=== PATIENT | male | born 1980 | race Hispanic/Latino ===

== ENCOUNTER 2020-02-03 10:38 | Emergency (ER) | payer SELFPAY ==
[2020-02-03 11:01] VITALS: BP 146/86; PULSE 61; RESP 18; TEMP 37.1; O2SAT 100
--- NOTE | 2020-02-03 11:16 | ED.NAVMDI ---
HPI - Nausea/Vomiting/Diarrhea General Chief complaint: Nausea/Vomiting/Diarrhea Stated complaint: upper stomach pain Time Seen by Provider: 02/03/20 11:16 Source: patient Mode of arrival: ambulatory Limitations: no limitations History of Present Illness HPI Narrative: Erick Fischer is a 39 yo male with no PMH wh comes to express care with complaints of belching and upper abdominal pain that is occurred prior to coming today but today has been there 3 separate times comes and goes. He states that he is eaten spicy food last night and her stomach seem to get upset this when he ate something else spicy and had pain after that. He states that he has had this in the past particularly when eating spicy foods. Patient has not had any primary care for a number of years because he has no insurance; no known whether he has any hypertension high cholesterol or diabetes. Patient will be given clinic referrals on discharge Related Data Home Medications Medication Instructions Recorded Confirmed cetirizine [Zyrtec] 10 mg PO DAILY 02/03/20 02/03/20 Allergies Allergy/AdvReac Type Severity Reaction Status Date / Time No Known Allergies Allergy Verified 02/03/20 11:06 Review of Systems Review of Systems: Narrative: CONSTITUTIONAL: Denies fever, chills, sweats. EYES: Denies visual changes, redness, discharge. ENT: Denies rhinorrhea, congestion, sore throat, otalgia. CARDIOVASCULAR: Denies chest pain, palpitations, edema. RESPIRATORY: Denies dyspnea, wheezing, cough GASTROINTESTINAL: Has epigastric pain, nausea, vomiting, diarrhea. GENITOURINARY: Denies dysuria, hematuria, abnormal discharge SKIN: Denies rash or itching. NEUROLOGIC: Denies numbness, or focal weakness. PSYCHIATRIC: Denies anxiety or depression. [facility] Past Medical History Medical History No active medical problems Family History Family History Other No active medical problems Social History Social History (Updated 02/03/20 @ 11:29 by Kristan Tarango CNP) Smoking packs per day: 0.5 Smoking cigarettes per day: 10.0 Smoking status: Current every day smoker Alcohol intake: current Comments At time of signature, I agree with nursing past medical, surgical, social and family history. There is no relevant family history pertinent to the presenting complaint. Blood pressure may be elevated due to pain and stress of coming to facility. Will refer to clinic through system Exam Narrative: Exam Narrative: GENERAL: This is a well-nourished, well-developed patient, in moderate distress. HEAD: normocephalic, atraumatic. EYES: Sclera clear/white. Vision is grossly intact. EARS: External ears normal, Hearing grossly intact. NOSE: External nose normal without nasal discharge, nares without redness, no rhinorrhea. THROAT: Mucous membranes moist, NECK: Neck supple, CARDIOVASCULAR: Regular rate and rhythm without murmurs, gallops, or rubs. RESPIRATORY: Clear to auscultation. Breath sounds equal bilaterally. No wheezes, rales, or rhonchi. GASTROINTESTINAL: Abdomen soft, tender in epigastric region, mild tenderness with deep palpation left lower quadrant SKIN: warm, intact with no suspicious lesions or rash, good texture and turgor. NEURO: awake, alert, and oriented to person, place and time. There were no obvious focal neurologic abnormalities. Steady gait EXTREMITIES: Normal range of motion. BACK: Nontender without deformity Course Course Emergency Course: Started on medication for GERD Protonix daily, given pepcid here and good rx coupon Patient must follow-up with clinic for blood work as well as continuation of medication Vital Signs Vital signs: Vital Signs Temperature 98.7 F 02/03/20 11:01 Pulse Rate 61 02/03/20 11:01 Respiratory Rate 18 02/03/20 11:01 Blood Pressure 146/86 H 02/03/20 11:01 Pulse Oximetry 100
[2020-02-03] MEDS: FAMOTIDINE 20 MG TABLET PO (11:42)
== END 2020-02-03 11:45 | disposition home or self-care (01) ==
PROVIDERS: Emergency Provider Nurse Practitioner
DX: K21.9 Gastro-esophageal reflux disease without esophagitis (principal); F17.210 Nicotine dependence, cigarettes, uncomplicated
CPT/HCPCS: 99203; A9270; G0463

== ENCOUNTER 2020-02-28 10:00 | Observation (INO) | payer SELFPAY ==
--- NOTE | ~2020-02-28 | XR_ITS ---
EXAMINATION: XR cholangiogram surg 1st inj DATE: 02/29/2020 12:39 INDICATION: Acute cholecystitis. TECHNIQUE: 112 fluoroscopic images of the right upper quadrant were obtained during intraoperative ch olangiography performed by the surgeon. I was not present in the operating room. Fluoroscopy exposure time was 20 seconds. COMPARISON: CT abdomen and pelvis 02/28/2020 FINDINGS: There is a catheter in the cystic duct. The common duct is mildly dilated to 8 mm. Contrast passes to the duodenum. No choledocholithiasis. IMPRESSION: 1. No choledocholithiasis. Reviewed, dictated and finalized at location A. IMPRESSION: 1. No choledocholithiasis.
--- NOTE | ~2020-02-28 | US_ITS ---
US right upper quadrant DATE: 02/28/2020 11:23 INDICATION: Abdominal pain TECHNIQUE: Real time imaging of the liver, pancreas and gallbladder COMPARISON: None FINDINGS: No hepatic or pancreatic space-occupying mass lesion is evident. Normal hepatopedal portal venous flow direction. There are multiple mobile shadowing filling defects of the gallbladder consistent with cholelithiasis . Gallbladder wall thickness is within normal range. Negative sonographic Hunter's sign. Common bile duct measures up to 1.6 cm, which is above normal range. IMPRESSION: Cholelithiasis Dilatation of the common bile duct; cannot exclude choledocholithiasis. Consider CT abdomen examinati on and/or MRCP Reviewed, dictated and finalized at Location A. Reviewed, dictated and finalized at location B. IMPRESSION: Cholelithiasis Dilatation of the common bile duct; cannot exclude choledocholithiasis. Conside r CT abdomen examination and/or MRCP
--- NOTE | ~2020-02-28 | CT_ITS ---
EXAMINATION: CT abdomen pelvis w con EXAM DATE: 02/28/2020 11:56 INDICATION: After quadrant pain, symptoms 3 weeks. TECHNIQUE: Spiral CT of the abdomen and pelvis was performed following intravenous injection of 100 m L Omnipaque 350. Axial, coronal and sagittal images were reviewed. The dose-length product (DLP) fo r this examination was 704.00 mGy-cm. The exposure was tailored according to patient size (auto mA e xposure control), and iterative reconstruction (ASIR) was used as additional dose reduction technique . Correlation is made to ultrasound same day. FINDINGS: The liver, spleen, adrenal glands and pancreas are unremarkable. Common bile duct is michelle l in caliber. There are multiple gallstones. There is mild pericholecystic fluid with indistinct gall bladder wall, appearance is suspicious for acute or chronic cholecystitis, clinical correlation. Por ynes and splenic veins are patent. Kidneys enhance symmetrically. There is no hydronephrosis. The prostate is unremarkable. The bladder is unremarkable. There is no retroperitoneal or pelvic lympha denopathy. The appendix is normal. The stomach and small bowel are unremarkable. There is expected amount of c olonic stool. No free intraperitoneal gas. The heart is normal in size. There are no pericardial or pleural effusions. The lung bases are unremarkable. The bones are unremarkable. IMPRESSION: Cholelithiasis, pericholecystic fluid and indistinct gallbladder wall, suspicious for acu te or chronic cholecystitis. Clinical correlation, HIDA scan recommended. Reviewed, dictated and finalized at location A. IMPRESSION: Cholelithiasis, pericholecystic fluid and indistinct gallbladder wa ll, suspicious for acute or chronic cholecystitis. Clinical correlation, HIDA s can recommended.
--- NOTE | ~2020-02-28 | XR_ITS ---
EXAMINATION: XR chest 2V EXAM DATE: 02/28/2020 10:32 INDICATION: Left-sided lower and upper chest pain. TECHNIQUE: Frontal and lateral projections of the chest obtained and reviewed. There is no prior shalini dy for comparison. FINDINGS: The lungs are clear. There are no pleural effusions. The cardiomediastinal silhouette is within normal limits. There is no pneumothorax suspected. The bones and soft tissues are unremarkab le. IMPRESSION: No acute cardiopulmonary findings. Reviewed, dictated and finalized at location A.
--- NOTE | 2020-02-28 10:07 | ECG_ITS ---
Measurements Intervals [place] Rate: 63 P: 8 ND: 136 QRS: 18 QRSD: 115 T: 7 QT: 394 QTc: 405 Interpretive Statements SINUS RHYTHM INTRAVENTRICULAR CONDUCTION DELAY ST ELEVATION IN ANTEROLAT/HIGH LAT LEADS- PROBABLY EARLY REPOLARIZATION BASELINE ARTIFACT- I, II, AVR, AVL, AVF BORDERLINE ECG Electronically Signed On 02-28-2020 10:27:05 CDT by Jay Adler D.O.
[2020-02-28 10:09] VITALS: BP 157/84; PULSE 69; RESP 20; O2SAT 98
--- NOTE | 2020-02-28 10:13 | ED.ABDPAIN ---
HPI - Abdominal Pain General Chief Complaint: Abdominal Pain Stated Complaint: lower to mid chest pain, from [facility] Time Seen by Provider: 02/28/20 10:01 Source: RN notes reviewed History of Present Illness HPI narrative: Patient presents emergency department from urgent care for gastric abdominal pain. Patient states symptoms been intermittent for the past 3 weeks. He states that pain is located in epigastric and left upper quadrant in the left lower chest and does not radiate. Described as burning in nature. States he was seen in urgent care several weeks ago and started on Protonix with minimal relief and went to urgent care today for follow-up and was instructed to come the ER for further evaluation. Denies any fevers or chills shortness of breath nausea vomiting diarrhea or any other symptoms. States he quit smoking 3 weeks ago Related Data Home Medications Medication Instructions Recorded Confirmed naproxen sodium [Aleve] mg PRN 02/28/20 Allergies Allergy/AdvReac Type Severity Reaction Status Date / Time No Known Allergies Allergy Verified 02/28/20 10:13 Review of Systems Review of Systems: Narrative: Gen.: Denies fevers or chills ENT: Denies congestion Respiratory: Denies shortness of breath or cough CV: Reports chest pain GI: See HPI Musculoskeletal: Denies back pain or muscle pain Neuro: Denies numbness, tingling, weakness or focal weakness Skin: Denies rash Except as documented, all other systems reviewed and negative [facility] Past Medical History Medical History No active medical problems Social History Social History Smoking packs per day: 0.5 Smoking cigarettes per day: 10.0 Smoking status: Current every day smoker Alcohol intake: current Gender identity (if verbalized by the patient): Male Exam Narrative: Exam Narrative: APPEARANCE: No acute distress, nontoxic, resting in bed HEENT: Normocephalic, atraumatic, OMM RESPIRATORY: No respiratory distress, clear to auscultation bilaterally with no rhonchi wheezing or rales CARDIOVASCULAR: RRR s murmur ABDOMINAL: Soft, nondistended, tender to palpation epigastric and left upper quadrant, no tenderness in either quadrant, right lower quadrant left lower quadrant, no rebound or guarding MUSCULOSKELETAl: Moves all extremities. No clubbing, cyanosis or edema. NEURO: Awake and alert. Following commands, speech normal, no focal deficits SKIN:: Warm, dry. Normal Color PSYCHIATRIC: Normal affect/mood Course Course Emergency Course: Discussed with Dr. Rivera presentation work-up. Agrees with admission to his service with patient started on Zosyn at this time Discussed with patient and family results of workup and diagnosis. Discussed need for admission. Patient and family understand and agree to current treatment plan Vital Signs Vital signs: Vital Signs Pulse Rate 69 02/28/20 10:09 Respiratory Rate 20 02/28/20 10:09 Blood Pressure 157/84 H 02/28/20 10:09 Pulse Oximetry 98 02/28/20 10:09 Pulse Rate 69 02/28/20 10:09 Respiratory Rate 02/28/20 10:09 Blood Pressure 157/84 H 02/28/20 10:09 Pulse Oximetry 98 02/28/20 10:09 MDM - Abdominal Pain Lab Data Result diagrams: 02/28/20 10:19 02/28/20 10:19 Labs: Lab Results 02/28/20 02/28/20 02/28/20 Range/Units 10:19 10:19 10:19 WBC 6.1 (4.5-10.0) K/mm3 RBC 5.00 (4.6-6.20) M/mm3 Hgb 15.3 (14.0-18.0) g/dL Hct 46.0 (42.0-52.0) % MCV 92.0 (80-100) fl MCH 30.6 (26-34) pg MCHC 33.3 (32-36) g/dl RDW 13.5 (11.5-14.5) % Plt Count 356 (150-375) k/mm3 MPV 9.2 (7.4-10.4) fl Immature Gran % (Auto) 0.7 H (0-0.5) % Neut % (Auto) 58.1 (45.5-73.1) % Lymph % (Auto) 30.2 (18.3-44.2) % [place] % (Auto) 6.5 (2.6-8.5) % Eos % (Auto) 4.2 (0-4.4) % Baso % (Auto)
[2020-02-28 10:29] LABS: Basophils Percent Auto 0.3 % (0.2-1.2); Eosinophils Absolute Auto 0.3 K/mm3 (0-0.3); Eosinophils Percent Auto 4.2 % (0-4.4); Hemoglobin 15.3 g/dL (14.0-18.0); Immature Granulocyte Absolute 0.04 K/mm3 (0.00-0.031); Immature Granulocyte Percent A 0.7 % (0-0.5); Lymphocytes Absolute Auto 1.85 K/mm3 (0.9-3.2); Lymphocytes Percent Auto 30.2 % (18.3-44.2); Mean Corpuscular HGB Conc 33.3 g/dl (32-36); Mean Corpuscular Hemoglobin 30.6 pg (26-34); Mean Platelet Volume 9.2 fl (7.4-10.4); Monocytes Absolute Auto 0.4 K/mm3 (0.1-0.6); Monocytes Percent Auto 6.5 % (2.6-8.5); Neutrophils Absolute Auto 3.6 K/mm3 (1.3-6.7); Neutrophils Percent Auto 58.1 % (45.5-73.1); Platelet Count Result 356 k/mm3 (150-375); Red Cell Distribution Width 13.5 % (11.5-14.5); White Blood Count 6.1 K/mm3 (4.5-10.0)
[2020-02-28 10:41] LABS: INR 0.8
[2020-02-28 10:42] LABS: Partial Thromboplastin Time 26.4 SECONDS (22.3-36.8)
[2020-02-28 10:44] LABS: Alanine Aminotransferase 157 U/L (4-50); Albumin Level 4.3 g/dL (3.5-5.1); Alkaline Phosphatase 161 U/L (38-126); Anion Gap 10 mmol/L (8-16); Aspartate Amino Transferase 49 U/L (17-59); Bilirubin,Total 2.9 mg/dL (0.2-1.3); Blood Urea Nitrogen 12 mg/dL (9-20); Calcium 9.5 mg/dL (8.4-10.2); Carbon Dioxide 28 mmol/L (22-30); Chloride 102 mmol/L (98-107); Estimated CRCL calculation 91 ml/min; Estimated Glomerular Filt Rate > 60; Glucose 185 mg/dL (75-110); Lipase 184 U/L (23-300); Potassium 3.9 mmol/L (3.4-5.0); Sodium 140 mmol/L (137-145)
[2020-02-28 10:55] LABS: Troponin I < 0.012 ng/mL (0.000-0.034)
[2020-02-28 11:37] LABS: Add Urine Microscopic? YES; Appearance Urine Clear (Clear); Bacteria Urine Trace /hpf; Bilirubin Urine Negative (Negative); Blood Urine Negative (Negative); Color Urine Amber (Yellow); Glucose Urine UA Negative (Negative); Ketones Urine Negative (Negative); Leukocyte Esterase Ur Negative LEU/UL (Negative); Mucus Urine Rare /lpf; Nitrate Urine Negative (Negative); Protein Urine Negative (Negative); RBC Urine 0-2 /hpf (0-2); Specific Grav Ur 1.017 (1.001-1.035); Squamous Epithelial Cell Urine Rare /hpf (Few); Urobilinogen Urine Negative mg/dL (<2.0); WBC Urine 0-3 /hpf
[2020-02-28 12:43] VITALS: BP 154/74; PULSE 61; RESP 16; O2SAT 98
[2020-02-28 14:07] VITALS: BP 145/93; PULSE 60; RESP 16; O2SAT 98
--- NOTE | 2020-02-28 14:30 | PC.NURSE ---
This patient, Erick Fischer, was admitted to 3 [facility] Surg Room 312-01. Patient/family oriented to hospital policies and general routines including ID bracelet, bed and alarms, visiting hours, pain management, procedures, bathroom and other care routines, personal items, smoking policy, room service/diet, and visiting hours. Valuables list has been completed. Information on how to activate the Rapid Response Team has been discussed. Patient/Family are encouraged to report perceived risks to care and to ask questions if they do not understand what they are told or what they should do.
[2020-02-28 14:31] VITALS: BMI 29.1
[2020-02-28 16:00] VITALS: BP 136/69; PULSE 57; RESP 16; TEMP 36.7; O2SAT 97
[2020-02-28] MEDS: SODIUM CHLORIDE 0.9% IV 1,000 ML 125 ML IV CONT (16:21)
[2020-02-28 16:58] LABS: Troponin I < 0.012 ng/mL (0.000-0.034)
[2020-02-28 19:54] LABS: Troponin I < 0.012 ng/mL (0.000-0.034)
--- NOTE | 2020-02-28 21:12 | PM.IMHP ---
H&P: HPI History of Present Illness Date/Time: 02/28/20 21:12 Chief complaint: Epigastric abdominal pain Narrative: Erick Fischer is a 39 year old male who presented to the ED today with epigastric abdominal pain off and on for the past few weeks. He has had several attacks of pain after eating. One time he knows it was after eating a flank steak with beans and rice. Other times he hasn't been able to pinpoint a specific food that caused it. He went to an urgent care the first time it happened and was given a prescription for Protonix and was told it was likely indigestion/acid reflux. The medicine helped somewhat at first but now it is not helping much. He has also been itching the last couple days and feeling feverish. He denies any hx of liver problems. He has never had problems like this in the past. Review of Systems Review of Systems: All systems reviewed & are unremarkable except as noted in HPI and below Constitutional: Constitutional: Reports as per HPI Eyes: Eyes: Denies change in vision ENT: Denies hearing loss, Denies neck pain and Denies sore throat Cardiovascular: Cardiovascular: Denies chest pain and Denies dyspnea Respiratory: Respiratory: Denies cough, Denies dyspnea and Denies wheezing Gastrointestinal: Gastrointestinal: Reports as per HPI Genitourinary: Genitourinary: Denies hematuria and Denies dysuria Musculoskeletal: Musculoskeletal: Denies arthralgias, Denies joint swelling and Denies neck pain Allergic/Immunologic: Allergic/Immunologic: Denies wheezing PMFSH Past Medical History Medical History No active medical problems Family History Family History Mother No active medical problems diabetes Social History Social History Smoking packs per day: 0.5 Smoking cigarettes per day: 10.0 Smoking status: Former smoker Tobacco type: cigarettes Smoking end date: 02/07/20 Alcohol intake: current Drinks per week: 2 Substance use: never Substance use type: does not use Gender identity (if verbalized by the patient): Male Sexual Orientation (if Verbalized by the Patient): Straight or Heterosexual Spiritual care concerns: No Meds Home Medications and Allergies Home Medications Medication Instructions Recorded Confirmed Type pantoprazole [Protonix] 40 mg PO QAM 28 Days #28 tablet 02/03/20 02/28/20 Rx naproxen sodium [Aleve] 220 mg PO PRN PRN 02/28/20 02/28/20 History Allergies Allergy/AdvReac Type Severity Reaction Status Date / Time No Known Allergies Allergy Verified 02/28/20 10:13 Vital Signs Vital Signs - 24 hr 02/28/20 10:09 02/28/20 12:43 02/28/20 14:07 Temperature Pulse Rate 69 61 60 Respiratory Rate 20 16 16 Blood Pressure 157/84 H 154/74 H 145/93 H Pulse Oximetry 98 98 98 02/28/20 16:00 Temperature 36.7 C Pulse Rate 57 L Respiratory Rate 16 Blood Pressure 136/69 Pulse Oximetry 97 Exam Const: General: alert; No acute distress Orientation/consciousness: patient oriented x3 Limitations: no limitations HENMT: Head: normocephalic and atraumatic Ears: hearing grossly normal bilaterally General nose exam: Normal external nose present and Normal nares present Mouth: Yes Normal oral and palatal mucosa present and Yes moist mucous membranes Eyes: General: appearance normal, both eyes and all related structures Conjunctivae: conjunctivae normal Sclera: sclerae normal Pupils: Equal, round and reactive pupils present EOM: EOMs intact bilaterally Neck: Neck: normal visual inspection, full ROM, no lymphadenopathy, supple and no JVD Lymphatic: no lymphadenopathy noted Chest: Chest palpation & inspection: normal inspection of the chest Resp: Effort & Inspection: normal respiratory effort and able to speak in complete sentences Auscultation: clear
[2020-02-28 22:00] VITALS: BP 148/65; PULSE 70; RESP 18; TEMP 36.8; O2SAT 98
[2020-02-29] VITALS (13 sets, daily range): BP systolic 129–150; BP diastolic 68–89; PULSE 62–93; RESP 14–20; TEMP 36.1–37; O2SAT 95–100
[2020-02-29] MEDS: SODIUM CHLORIDE 0.9% IV 1,000 ML 125 ML IV CONT (01:43)
[2020-02-29] MEDS: CHLORHEXIDINE GLUCONATE 4% SOL 120 ML BTL 1 APPLIC TOPICAL (04:49)
[2020-02-29 06:30] LABS: Basophils Percent Auto 0.3 % (0.2-1.2); Eosinophils Absolute Auto 0.2 K/mm3 (0-0.3); Eosinophils Percent Auto 3.5 % (0-4.4); Hematocrit 40.6 % (42.0-52.0); Hemoglobin 13.6 g/dL (14.0-18.0); Immature Granulocyte Absolute 0.03 K/mm3 (0.00-0.031); Immature Granulocyte Percent A 0.5 % (0-0.5); Lymphocytes Absolute Auto 1.66 K/mm3 (0.9-3.2); Lymphocytes Percent Auto 28.8 % (18.3-44.2); Mean Corpuscular HGB Conc 33.5 g/dl (32-36); Mean Corpuscular Hemoglobin 30.2 pg (26-34); Mean Platelet Volume 9.2 fl (7.4-10.4); Monocytes Absolute Auto 0.6 K/mm3 (0.1-0.6); Monocytes Percent Auto 10.2 % (2.6-8.5); Neutrophils Absolute Auto 3.3 K/mm3 (1.3-6.7); Neutrophils Percent Auto 56.7 % (45.5-73.1); Platelet Count Result 327 k/mm3 (150-375); Red Blood Count 4.51 M/mm3 (4.6-6.20); Red Cell Distribution Width 13.2 % (11.5-14.5); White Blood Count 5.8 K/mm3 (4.5-10.0)
[2020-02-29 06:43] LABS: Alanine Aminotransferase 126 U/L (4-50); Alkaline Phosphatase 144 U/L (38-126); Anion Gap 10 mmol/L (8-16); Aspartate Amino Transferase 45 U/L (17-59); Bilirubin,Total 3.5 mg/dL (0.2-1.3); Blood Urea Nitrogen 12 mg/dL (9-20); Calcium 8.9 mg/dL (8.4-10.2); Carbon Dioxide 27 mmol/L (22-30); Chloride 103 mmol/L (98-107); Estimated CRCL calculation 91 ml/min; Estimated Glomerular Filt Rate > 60; Glucose 145 mg/dL (75-110); Lipase 276 U/L (23-300); Potassium 4.1 mmol/L (3.4-5.0); Sodium 140 mmol/L (137-145)
[2020-02-29] MEDS: LACTATED RINGERS 1,000 ML 30 ML IV CONT ×2 (11:00→13:01)
--- NOTE | 2020-02-29 11:07 | WPDANESEPPF ---
Anes - Initial Pre Proc Eval Procedure: Operation Date: 02/29/20 11:30 Proposed Procedures p Laparoscopic Cholecystectomy - Huey Rivera DO Date/Time: 02/29/20 11:07 Surgeon: Huey Rivera DO Pre Op Diagnosis: Epigastric abdominal pain Patient Data Age: 39 Gender: M Height: 5 ft 10 in Weight: 92.2 kg Last Vital Signs Temp 97.8 F 02/29/20 04:00 Pulse 62 02/29/20 04:00 Resp 20 02/29/20 04:00 BP 132/86 02/29/20 04:00 Pulse Ox 95 02/29/20 04:00 Allergies Allergy/AdvReac Type Severity Reaction Status Date / Time No Known Allergies Allergy Verified 02/29/20 10:38 Home Medications Medication Instructions Recorded Confirmed Type pantoprazole [Protonix] 40 mg PO QAM 28 Days #28 tablet 02/03/20 02/28/20 Rx naproxen sodium [Aleve] 220 mg PO PRN PRN 02/28/20 02/28/20 History Laboratory Tests 02/28/20 02/28/20 02/28/20 11:21 16:22 19:15 WBC RBC Hgb Hct MCV MCH MCHC RDW Plt Count MPV Immature Gran % (Auto) Neut % (Auto) Lymph % (Auto) [place] % (Auto) Eos % (Auto) Baso % (Auto) Lymph # (Auto) [place] # (Auto) Eos # (Auto) Baso # (Auto) Abs Immat Gran (auto) Absolute Neuts (auto) Absolute Nucleated RBC Nucleated RBC % Sodium Potassium Chloride Carbon Dioxide Anion Gap BUN Creatinine Estim Creat Clear Calc Estimated GFR Glucose Calcium Total Bilirubin AST ALT Alkaline Phosphatase Troponin I < 0.012 ng/mL ng/mL < 0.012 ng/mL ng/mL (0.000-0.034) (0.000-0.034) Total Protein Albumin Lipase Urine Color [place] (Yellow) Urine Appearance Clear (Clear) Urine pH 5.0 (5.0-9.0) Ur Specific [place] 1.017 (1.001-1.035) Urine Protein Negative mg/dL mg/dL (Negative) Urine Glucose (UA) Negative mg/dL mg/dL (Negative) Urine Ketones Negative mg/dL mg/dL (Negative) Ur Blood (Man) Negative (Negative) Urine Nitrate Negative (Negative) Urine Bilirubin Negative (Negative) Urine Urobilinogen Negative mg/dL mg/dL (<2.0) Leukocyte Esterase Rfl Negative BERTRAM/UL BERTRAM/UL (Negative) Urine RBC 0-2 /hpf /hpf (0-2) Urine WBC 0-3 /hpf /hpf Ur Squamous Epith Cells Rare /hpf /hpf (Few) Urine Bacteria Trace /hpf /hpf Hyaline Casts 1-2 /lpf /lpf (None) Urine Mucus Rare /lpf /lpf Blood Type Antibody Screen 02/29/20 02/29/20 02/29/20 06:09 06:09 06:09 WBC 5.8 K/mm3 K/mm3 (4.5-10.0) RBC 4.51 M/mm3 L M/mm3 (4.6-6.20) Hgb 13.6 g/dL L g/dL (14.0-18.0) Hct 40.6 % L % (42.0-52.0) MCV 90.0 fl fl (80-100) MCH 30.2 pg pg (26-34) MCHC 33.5 g/dl g/dl (32-36) RDW 13.2 % % (11.5-14.5) Plt Count 327 k/mm3 k/mm3 (150-375) MPV 9.2 fl fl (7.4-10.4) Immature Gran % (Auto) 0.5 % % (0-0.5) Neut % (Auto) 56.7 % % (45.5-73.1) Lymph % (Auto) 28.8 % % (18.3-44.2) [place] % (Auto) 10.2 % H % (2.6-8.5) Eos % (Auto) 3.5 % % (0-4.4) Baso % (Auto) 0.3 % % (0.2-1.2) Lymph # (Auto) 1.66 K/mm3 K/mm3 (0.9-3.2) [place] # (Auto) 0.6 K/mm3 K/mm3 (0.1-0.6) Eos # (Auto) 0.2 K/mm3 K/mm3 (0-0.3) Baso # (Auto) 0.0 K/mm3 K/mm3 (0.0-0.1) Abs Immat Gran (auto) 0.03 K/m
--- NOTE | 2020-02-29 11:37 | WPDHPUPDATE1 ---
History and Physical Update Update Date/Time: 02/29/20 11:37 History and Physical has been reviewed, including an updated exam of the patient. There are NO changes in the patient's condition. Risks, benefits, and alternatives have been discussed and questions answered. Patient agrees to proceed with procedure.
[2020-02-29] MEDS: BUPIVACAINE/EPINEPHRINE 0.5% 10 ML VIAL 30 ML INFILTRATE (12:19)
--- NOTE | 2020-02-29 12:56 | PM.PROC ---
Procedure Note - Detailed Date of procedure: 02/29/20 Pre-op diagnosis: Acute calculous cholecysitis, elevated LFT's Post-op diagnosis: same Procedure performed: Laparoscopic Cholecystectomy with intraoperative cholangiogram Description of procedure: Procedure as well as risks, benefits, and alternatives were discussed with patient. Written consent was obtained and placed in chart prior to procedure. The patient was brought back to surgical suite. Patient was placed in supine position on operating table. Time-out was done to confirm patient and procedure. Patient was then intubated by the anesthesia department. Abdomen was prepped and draped in sterile fashion using chlorhexidine prep. 0.5% bupivacaine with epinephrine was infiltrated at each site of incision. A 5 millimeter incision was made near the umbilicus, and a 5 millimeter Optiview trocar was advanced through the abdominal layers under direct visualization. Once inside the abdominal cavity, carbon dioxide was insufflated to create a pneumoperitoneum. The camera was inserted and the abdomen was inspected. No immediate abnormalities were identified. The patient was placed in reverse Trendelenburg position and rotated slightly to the left. An 11 millimeter incision was made in the subxiphoid region, and an 11 millimeter trocar was inserted under direct visualization. Two 5 millimeter incisions were made in the right upper quadrant, and two 5 millimeter trocars were inserted under direct visualization. The gallbladder was identified and grasped at the fundus and retracted superiorly. It was then grasped at the infundibulum retracted laterally. Careful dissection around the neck of the gallbladder was performed using blunt dissection with a [place] grasper and hook electrocautery. The cystic duct was identified, and a window was created behind it. The cystic artery was also identified and a window was created behind it. The critical view of safety was identified, visualizing the cystic duct running directly into the neck of the gallbladder, and the cystic artery running directly into the wall of the gallbladder. The Daniel clamp was placed across the neck of the gallbladder and Daniel cholangiocatheter was advanced into the distal neck of the gallbladder. The catheter flushed with saline with ease. The intraoperative cholangiogram was obtained using Omnipaque contrast with the patient supine on the operating table. No evidence of filling defects were noted. The images were sent to the radiologist for interpretation. The patient was placed back in reverse Trendelenburg position. The Daniel clamp and catheter were removed. A 5 millimeter clip inspector assemblies and installations was then used to place 2 clips proximally and 1 clip distally on both the cystic duct and cystic artery. They were then both transected using endoscopic scissors. Once safely away from the bety hepatitis, the gallbladder was dissected free from the liver bed using hook electrocautery. Hemostasis was achieved along the way. The gallbladder was removed completely and then removed through the subxiphoid port. The liver bed was then inspected. Hemostasis appeared adequate, and our clips appeared secure. The area was gently irrigated with sterile saline. No other abnormalities were seen. The patient was flattened out in bed, and 1 final inspection was made around the abdominal cavity. The subxiphoid port was removed, and a Saeid Tay cone was used to approximate the fascia with an 0-Vicryl simple interrupted suture. The remaining ports were then removed under direct visualization, the camera was removed, and the pneumoperitoneum was released. The skin of the incisions was approximated using 4-0 Monocryl subcuticular sutures. Exofin glue was applied on top. The patient was then awakened from anesthesia, extubated, and transferred to recovery. Anesthesia: GETA and local (0.5% bupivicaine with epi) Surgeon: Huey Rivera DO Estimated blood loss (
[2020-02-29] MEDS: fentaNYL CITRATE INJ (*CRX) 100 MCG/2 ML VIAL 25 MCG IV PUSH ×8 (13:22→14:02)
[2020-02-29] MEDS: MORPHINE SULFATE (*CRX) 2 MG/ML INJ IV PUSH (15:11)
[2020-02-29] MEDS: ONDANSETRON INJ 4 MG/2 ML VIAL IV PUSH (15:11)
[2020-02-29] MEDS: HYDROcodone/acetaminophen (*CRX) 5-325 MG TABLET 1 TAB PO (17:59)
[2020-02-29] MEDS: PANTOPRAZOLE 40 MG TABLET PO (18:00)
--- NOTE | 2020-03-14 15:18 | PM.DS ---
DS: Admitting Diagnosis Admitting Diagnosis Admitting Diagnosis: Acute calculous cholecysitis, elevated LFT's DS: Discharge Diagnosis Discharge Diagnosis (1) Acute cholecystitis: Code(s): K81.0 - Acute cholecystitis Status: Acute (2) BMI 30.0-30.9,adult: Code(s): Z68.30 - Body mass index [BMI]30.0-30.9, adult Status: Acute DS: Summary Hospital Course Reason for hospitalization: Acute calculous cholecystitis. Hospital Course: This is a 39-year-old man who presented to the emergency department with upper abdominal pain for the past several weeks. He was having pain off and on, but now his pain has become more persistent and more severe. He was evaluated in the emergency department and imaging suggested acute calculous cholecystitis. He was admitted for further treatment. He was started on broad-spectrum IV antibiotics. He was noted to have elevated liver enzymes on admission. Decision was made to proceed with laparoscopic cholecystectomy with intraoperative cholangiogram. Patient underwent surgery on 02/29/2020. Postoperatively his diet and activity were advanced as tolerated. He was tolerating a low-fat diet and his pain was well controlled. He was discharged on 02/29/2020. Status at Discharge Functional status at discharge: independent ambulation Overall status at discharge: patient is progressing back to baseline Time Spent with Patient Time attestation: Total time spent providing and/or coordinating discharge services: Time spent: Less than 30 minutes Exam GI: Inspection: non-distended GI Palp: Yes Soft to palpation DS: Data Data Completed and Pending Completed studies during hospitalization: Pending at discharge 02/29/20 12:13 Surgical [PTH] Routine Discharge Plan Discharge Attending physician on discharge: Huey Knapp Consulting providers: Gurpreet Blanchard ; Kevin Mckeon V. ; Brett Kyle ; Jay Adler ; Laurent Mcgee Discharging Clinician: Huey Knapp Anticipated Discharge Date/Time: 02/29/20 16:00 Patient Disposition: Home, Self-Care Activity: other - see discharge instructions Diet: low fat Wound Care Instructions: follow printed instructions Discharge Instructions: DISCHARGE INSTRUCTION SHEET FOR HERNIA, GALLBLADDER AND APPENDIX SURGERIES DR. KNAPP PATIENT TO TAKE HOME 1. May shower in 24 hours, no soaking in bath x 2weeks. 2. Call office for: Wound increasingly painful or bleeding Vomiting Fever of greater than 101 degrees 3. If no bowel movement for three days, take 1 oz. (30 ml) Milk of Magnesia or MiraLax 17g 1 to 2 times daily. 4. No heavy lifting > 10-15 pounds x weeks for hernia repairs and 2 weeks for laparoscopic cholecystectomy or appendectomy. 5. No driving for 3 days or while taking narcotic pain medications. 6. Ice to surgical site for 48 hours (30 min on, then 30 min off). 7. Up walking 10-30 minutes three times per day. 8. Resume previous home medications. 9. Follow-up 10-14 days in office for wound check or as previously scheduled. ([phone]) 10. Oral pain medications prescription to be sent to pharmacy. Take Tylenol 500mg every 6 hours and Ibuprofen 600mg every 6 hours for the first 2 days, then as needed. 11. NUTRITION: Start out by drinking fluids and increase your diet as tolerated. If you experience nausea, try dry toast, crackers, and 7-UP. If nausea or vomiting persists, contact your surgeon?s office. 12. Gallbladders-Low Fat Diet for 2 weeks (send care note of low fat diet) 13. Inguinal Hernias-wear scrotal support for 48 hours 14. Abdominal Hernias-if sent home with abdominal binder, wear for the first 2 weeks (may remove to shower or at night to sleep).
== END 2020-02-29 18:52 | disposition home or self-care (01) ==
LOC: ANHED 12:33 → ANH3MEDSUR 13:02
PROVIDERS: Admitting Provider Surgery; Emergency Provider Emergency Medicine; Visit Provider Surgery
PROC: 0FT44ZZ Resection of Gallbladder, Percutaneous Endoscopic Approach (ICD-10-PCS; CPT 47562; principal; 2020-02-29 11:30)
DX: K80.00 Calculus of gallbladder with acute cholecystitis without obstruction (principal); R74.8 Abnormal levels of other serum enzymes; Z87.891 Personal history of nicotine dependence; R07.9 Chest pain, unspecified
CPT/HCPCS: 47563; 36415; 71046; 74177; 74300; 76705; 80053; 81001; 83690; 84484; 85025; 85610; 85730; 86850; 86900; 86901; 88304; 93005; 96361; 96365; 96375; 96376; 99285; A9270; G0378; G0379; J0330; J1100; J2250; J2270; J2405; J2543; J2704; J2710; J3010; J7030; J7120; Q9966; Q9967

== ENCOUNTER 2024-05-03 09:21 | Emergency (ER) | payer SELFPAY ==
--- NOTE | ~2024-05-03 | CT_ITS ---
CT of the Abdomen and Pelvis: Indication: Abdominal pain Technique: 2.5 mm axial scans were obtained through the abdomen and pelvis following intravenous adm inistration of 100 cc of Omnipaque 350. Dose reduction technique was used on this scan by utilizing a utomated exposure control and iterative reconstruction technique. The dose-length product (DLP) was 4 85.62 mGy-cm. Findings: Scans through the lung bases are unremarkable. The liver, spleen, pancreas, adrenals and kidneys are within normal limits. Cholecystectomy clips are present. No evidence of aortic aneurysm. No lymphadenopathy. No bowel obstruction or bowel wall thickening. There is no evidence to suggest acute appendicitis. Images through the pelvis were performed. Urinary bladder unremarkable. No pelvic mass seen. No ascit es. Impression: No significant abnormalities seen. Reviewed, dictated and finalized at [facility]. [employer]PRESENT[employer]IVE Impression: No significant abnormalities seen.
[2024-05-03 09:24] VITALS: BP 139/74; PULSE 69; RESP 18; TEMP 36.7; O2SAT 100
[2024-05-03 12:11] LABS: Basophils Percent Auto 0.3 % (0.2-1.2); Eosinophils Absolute Auto 0.3 K/mm3 (0-0.3); Eosinophils Percent Auto 3.6 % (0-4.4); Hemoglobin 14.6 g/dL (14.0-18.0); Immature Granulocyte Absolute 0.02 K/mm3 (0.00-0.031); Immature Granulocyte Percent A 0.3 % (0-0.5); Lymphocytes Absolute Auto 1.66 K/mm3 (0.9-3.2); Mean Corpuscular HGB Conc 33.2 g/dl (32-36); Mean Corpuscular Hemoglobin 30.7 pg (26-34); Mean Corpuscular Volume 92.4 fl (80-100); Mean Platelet Volume 9.2 fl (7.4-10.4); Monocytes Absolute Auto 0.5 K/mm3 (0.1-0.6); Monocytes Percent Auto 6.8 % (2.6-8.5); Neutrophils Absolute Auto 5.1 K/mm3 (1.3-6.7); Platelet Count Result 250 k/mm3 (150-375); Red Blood Count 4.76 M/mm3 (4.6-6.20); White Blood Count 7.5 K/mm3 (4.5-10.0)
[2024-05-03 12:15] LABS: Add Urine Microscopic? YES; Appearance Urine Clear (Clear); Bacteria Urine None Seen /hpf; Bilirubin Urine Negative (Negative); Blood Urine Negative (Negative); Color Urine Yellow (Yellow); Glucose Urine UA Negative (Negative); Ketones Urine Negative (Negative); Leukocyte Esterase Ur Trace LEU/UL (Negative); Nitrate Urine Negative (Negative); Non Pathogenic Casts 0-2; Protein Urine Negative (Negative); RBC Urine 0-2 /hpf (0-2); Specific Grav Ur 1.021 (1.001-1.035); Squamous Epithelial Cell Urine Occasional /hpf (Few); Urobilinogen Urine 0.2 mg/dL (<2.0); WBC Urine 0-5 /hpf (0-3)
[2024-05-03 12:20] LABS: Prothrombin Time 13.3 Seconds (11.1-14.7)
[2024-05-03 12:21] LABS: Partial Thromboplastin Time 25.9 Seconds (22.3-36.8)
[2024-05-03 12:31] LABS: Alanine Aminotransferase 50 U/L (6-50); Albumin Level 4.4 g/dL (3.5-5.1); Alkaline Phosphatase 82 U/L (38-126); Anion Gap 4 mmol/L (4-12); Aspartate Amino Transferase 29 U/L (17-59); Bilirubin,Total 0.7 mg/dL (0.2-1.3); Blood Urea Nitrogen 16 mg/dL (9-20); Carbon Dioxide 29 mmol/L (22-30); Chloride 105 mmol/L (98-107); Estimated Glomerular Filt Rate > 60; Glucose 117 mg/dL (65-110); Potassium 4.4 mmol/L (3.4-5.0); Sodium 138 mmol/L (137-145)
[2024-05-03] MEDS: PANTOPRAZOLE SODIUM IV 40 MG VIAL IV PUSH (12:33)
[2024-05-03] MEDS: FAMOTIDINE 20 MG/2 ML VIAL IV PUSH (12:34)
--- NOTE | 2024-05-03 12:36 | ED_ITS ---
HPI - General Adult General Chief complaint: Abdominal Pain Stated complaint: left flank pain Time Seen by Provider: 05/03/24 11:37 History of Present Illness HPI narrative: 44-year-old male presenting to the emergency department for evaluation for left upper quadrant pain. Patient reports began developing pain a few days ago. Patient states pain is worsened with eating. Patient states he had a large male last night and this definitely cause a sensation bloating. Patient denies any prior history of gastritis. Patient denies any history of kidney stones. Related Data Home Medications Medication Instructions Recorded Confirmed naproxen sodium 220 mg tablet 220 mg PO PRN PRN Mild Pain (Scale 02/28/2002/27 (Aleve) Score 1-4) Allergies Allergy/AdvReac Type Severity Reaction Status Date / Time No Known Allergies Allergy Verified 03/14/20 10:55 Review of Systems Review of Systems: All systems reviewed & are unremarkable except as noted in HPI and below PMFSH Past Medical History Medical History Elevated liver enzymes GERD (gastroesophageal reflux disease) No active medical problems Surgical History Surgical History Hx laparoscopic cholecystectomy 02/29/2020 Family History Family History Mother No active medical problems diabetes Social History Social History Smoking packs per day: 0.5 Smoking cigarettes per day: 10.0 Smoking status: Former smoker Tobacco type: cigarettes Smoking end date: 02/07/20 Alcohol intake: current Drinks per week: 2 Substance use: never Substance use type: does not use Gender identity (if verbalized by the patient): Male Sexual Orientation (if Verbalized by the Patient): Straight or Heterosexual Spiritual care concerns: No Exam Narrative: APPEARANCE: Well appearing, no pain, no distress, well-nourished. HEAD: normocephalic, atraumatic. EYES: PERRLA/EOMI, conjunctivae clear. NOSE: Normal no drainage EARS:TMS clear with good light reflex. THROAT: Pharynx clear, no exudate. NECK: Supple. No adenopathy, no masses. RESPIRATORY: Airway patent, respirations nonlabored. Clear to auscultation bilaterally, no rales, rhonchi, wheezing. CARDIOVASCULAR: Regular rate and rhythm without murmurs rubs or gallops. ABDOMINAL: Soft, nontender, nondistended, normal bowel sounds MUSCULOSKELETAL: Moves all extremities. Strength/ROM intact, No edema, No calf tenderness. NEURO: Alert. Cranial nerves II through XII intact. Grossly intact SKIN: Warm, dry. Normal Color Course Course Emergency Course: Patient felt improved and was updated results of his workup. Vital Signs Vital signs: Vital Signs Temperature 98.0 F 05/03/24 09:24 Pulse Rate 69 05/03/24 09:24 Respiratory Rate 18 05/03/24 09:24 Blood Pressure 139/74 05/03/24 09:24 Pulse Oximetry 100 05/03/24 09:24 Oxygen Delivery Room Air 05/03/24 09:24 Temperature 97.6 F 05/03/24 14:59 Pulse Rate 62 05/03/24 14:59 Respiratory Rate 18 05/03/24 14:59 Blood Pressure 125/75 05/03/24 14:59 Pulse Oximetry 100 05/03/24 14:59 Oxygen Delivery Room Air 05/03/24 09:24 Medical Decision Making [facility] Narrative Medical decision making narrative: 44-year-old male presented emergency department for evaluation for left upper quadrant abdominal pain. Patient is afebrile with no leukocytosis and a hemoglobin of 14.6. Patient has no acute abnormalities on his CMP and patient is UA shows no evidence of infection. CT scan showed no acute abnormality. Patient was treated with Protonix and famotidine along with IV pain medication. On re-evaluation patient states he feels significantly improved. Suspect gastritis. During patient Education on how to prevent gastritis patient did admit that he had been taking more ibuprofen recently due to the stomach pain. Patient has previously been on Prilosec but has not been taking it recently. Patient was encouraged to restart his Prilosec and was encouraged to have close follow-up with GI. All questions and concerns were addressed. Differential Diagnosis Differential Diagnosis: Colitis, diverticulitis, gastritis, gastric ulcer, pancreatitis Vital Signs Vital Signs: Vital Signs Temperature 98.0 F 05/03/24 09:24 Pulse Rate 69 05/03/24 09:24 Respiratory Rate 18 05/03/24 09:24 Blood Pressure 139/74 05/03/24 09:24 Pulse Oximetry 100 05/03/24 09:24 Oxygen Delivery Room Air 05/03/24 09:24 Temperature 97.6 F 05/03/24 14:59 Pulse Rate 62 05/03/24 14:59 Respiratory Rate 18 05/03/24 14:59 Blood Pressure 125/75 05/03/24 14:59 Pulse Oximetry 100 05/03/24 14:59 Oxygen Delivery Room Air 05/03/24 09:24 Lab Data Lab results reviewed: Yes I reviewed the patient's lab results. 05/03/24 12:05 05/03/24 12:05 Labs: Lab Results 05/03/24 Range/Units 12:05 WBC 7.5 (4.5-10.0) K/mm3 RBC 4.76 (4.6-6.20) M/mm3 Hgb 14.6 (14.0-18.0) g/dL Hct 44.0 (42.0-52.0) % MCV 92.4 (80-100) fl MCH 30.7 (26-34) pg MCHC 33.2 (32-36) g/dl RDW 13.0 (11.5-14.5) % Plt Count 250 (150-375) k/mm3 MPV 9.2 (7.4-10.4) fl Immature Gran % (Auto) 0.3 (0-0.5) % Neut % (Auto) 67.0 (45.5-73.1) % Lymph % (Auto) 22.0 (18.3-44.2) % [place] % (Auto) 6.8 (2.6-8.5) % Eos % (Auto) 3.6 (0-4.4) % Baso % (Auto) 0.3 (0.2-1.2) % Lymph # (Auto) 1.66 (0.9-3.2) K/mm3 [place] # (Auto) 0.5 (0.1-0.6) K/mm3 Eos # (Auto) 0.3 (0-0.3) K/mm3 Baso # (Auto) 0.0 (0.0-0.1) K/mm3 Abs Immat Gran (auto) 0.02 (0.00-0.031) K/mm3 Absolute Neuts (auto) 5.1 (1.3-6.7) K/mm3 Absolute Nucleated RBC 0.000 (0.0-0.012) K/mm3 Nucleated RBC % 0.0 (0.0-0.2) % PT 13.3 (11.1-14.7) Seconds INR 1.0 APTT 25.9 (22.3-36.8) Seconds Sodium 138 (137-145) mmol/L Potassium 4.4 (3.4-5.0) mmol/L Chloride 105 (98-107) mmol/L Carbon Dioxide 29 (22-30) mmol/L Anion Gap 4 (4-12) mmol/L BUN 16 (9-20) mg/dL Creatinine 1.00 (0.7-1.3) mg/dL Estim Creat Clear Calc Not Reportable Estimated GFR > 60 (59 - ) Glucose 117 H (65-110) mg/dL Calcium 9.0 (8.4-10.2) mg/dL Total Bilirubin 0.7 (0.2-1.3) mg/dL AST 29 (17-59) U/L ALT 50 (6-50) U/L Alkaline Phosphatase 82 (38-126) U/L Total Protein 8.0 (6.3-8.2) g/dL Albumin 4.4 (3.5-5.1) g/dL Urine Color Yellow (Yellow) Urine Appearance Clear (Clear) Urine pH 5.0 (5.0-9.0) Ur Specific [place] 1.021 (1.001-1.035) Urine Protein Negative (Negative) mg/dL Urine Glucose (UA) Negative (Negative) mg/dL Urine Ketones Negative (Negative) mg/dL Ur Blood (Man) Negative (Negative) Urine Nitrate Negative (Negative) Urine Bilirubin Negative (Negative) Urine Urobilinogen 0.2 (<2.0) mg/dL Leukocyte Esterase Rfl Trace H (Negative) BERTRAM/UL Urine RBC 0-2 (0-2) /hpf Urine WBC 0-5 (0-3) /hpf Ur Squamous Epith Cells Occasional (Few) /hpf Urine Bacteria None seen /hpf Urine Casts 0-2 Discharge Plan Discharge Clinical Impression: Abdominal pain, acute, left upper quadrant Patient Disposition: Home, Self-Care Condition: Stable Instructions: Antibiotic Form, Diet for Stomach Ulcers and Gastritis (ED), Abdominal Pain (ED) Additional Instructions: Avoid alcohol and avoid ibuprofen. Follow a bland diet. Prilosec as directed. Maalox as needed intermittently for left upper quadrant abdominal pain. Have close follow-up with GI. If you have any worsening symptoms then please call or return to the emergency department. Prescriptions: New omeprazole magnesium [Prilosec OTC] 20 mg tablet,delayed release (DR/EC) 20 mg PO DAILY 14 Days Qty: 14 0RF No Action pantoprazole [Protonix] 40 mg tablet,delayed release (DR/EC) 40 mg PO QAM 28 Days Qty: 28 0RF naproxen sodium [Aleve] 220 mg Tablet 220 mg PO PRN PRN (Reason: Mild Pain (Scale Score 1-4)) Follow-up/Referrals: Shane Clark MD [Physician] - UNKNOWN,DOCTOR [Primary Care Provider] -
[2024-05-03] MEDS: HYDROmorphone HCL INJ (*CRX) 1 MG/ML SYR IV PUSH (12:37)
--- NOTE | 2024-05-03 12:37 | PC.NURSE ---
Pt placed on portable monitor prior to medications being administered
[2024-05-03 14:59] VITALS: BP 125/75; PULSE 62; RESP 18; TEMP 36.4; O2SAT 100
== END 2024-05-03 15:00 | disposition home or self-care (01) ==
PROVIDERS: Emergency Provider Emergency Medicine
DX: R10.12 Left upper quadrant pain (principal); K21.9 Gastro-esophageal reflux disease without esophagitis; Z87.891 Personal history of nicotine dependence
CPT/HCPCS: 36415; 74177; 80053; 81001; 85025; 85610; 85730; 96374; 96375; 99284; J1171; J2470; Q9967